=== PATIENT | male | born 1995 | race Caucasian/White ===

== ENCOUNTER 2017-05-17 10:37 | Emergency (ER) | payer MEDICARE | END 2017-05-17 12:35 | disposition home or self-care (01) | LOC: ER1 10:37 | DX: S10.93XA Contusion of unspecified part of neck, initial encounter (principal); F17.210 Nicotine dependence, cigarettes, uncomplicated; W22.8XXA Striking against or struck by other objects, initial encounter; Y93.H3 Activity, building and construction | CPT/HCPCS: 70450; 72125; 73030; 90471; 90714; 99283 ==

== ENCOUNTER 2021-11-14 23:47 | Emergency (ER) | payer OTHER ==
[2021-11-15 00:28] LABS: HEMOGLOBIN 12.8 gm/dl (14.0-17.5); RED BLOOD COUNT 4.18 M/UL (4.20-5.50); WHITE BLOOD COUNT 6.7 K/UL (4.5-11.0)
[2021-11-15 00:34] LABS: BUN/CREATININE RATIO 23 (0-10)
[2021-11-15] MEDS ORDERED: PERCOCET 5/325 T1 EA PO (02:38)
[2021-11-15] MEDS ORDERED: KEFLEX750 MG PO (02:38)
== END 2021-11-15 02:59 | disposition home or self-care (01) ==
LOC: ER1 23:47
PROVIDERS: Family Medicine
DX: S71.132A Puncture wound without foreign body, left thigh, initial encounter (principal); Z23 Encounter for immunization; W34.00XA Accidental discharge from unspecified firearms or gun, initial encounter
CPT/HCPCS: 73552; 80053; 83605; 85025; 85610; 85730; 86850; 86900; 86901; 90714; 99283; G0480; J0690; J1885; J2270; J2405